=== PATIENT | male | born 1960 | race Caucasian/White ===

== ENCOUNTER → 2022-02-24 | Outpatient (CLI) | payer OTHER ==
--- NOTE | 2022-02-25 13:58 | MR ---
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 TECHNIQUE: Multi planar, multi sequence imaging was performed utilizing: T1-weighted, T2-weighted, a nd turbo inversion recovery imaging of the cervical and lumbar spine. MR contrast: None. FINDINGS: CERVICAL: Alignment: The cervical vertebral bodies have preserved heights. Alignment is within normal limits gi noris patient positioning. Bones: Multilevel degenerative disc disease is noted and most pronounced at the C5-C7 vertebral leve ls. Mild reactive bony edema noted along the adjoining endplates of C5 and C6. Cord: The spinal cord is unremarkable with regards to their signal intensity and morphology. Discs: Intervertebral disc signal is maintained. C2-C3: No significant disc pathology. The spinal canal is patent. Bilateral facet and uncovertebral joint arthropathy are present with mild left neural foraminal stenosis. The right neural foramen is p atent. C3-C4: A disc osteophyte complex is present which minimally narrows the ventral subarachnoid space. Bilateral facet and uncovertebral joint arthropathy are present with mild bilateral neural foraminal stenosis. C4-C5: A disc osteophyte complex is present which minimally narrows the ventral subarachnoid space. Bilateral facet and uncovertebral joint arthropathy are present with moderate left neural foraminal stenosis. The right neural foramen is patent. C5-C6: A disc osteophyte complex is present which minimally narrows the ventral subarachnoid space. Bilateral facet and uncovertebral joint arthropathy are present with moderate mild left neural oliver inal stenosis. C6-C7: A disc osteophyte complex is present which minimally narrows the ventral subarachnoid space. Bilateral facet and uncovertebral joint arthropathy are present with mild bilateral neural foraminal stenosis. C7-T1: A disc osteophyte complex is present which minimally narrows the ventral subarachnoid space. Bilateral facet and uncovertebral joint arthropathy are present with mild bilateral neural foraminal stenosis. Other: None. LUMBAR: Alignment: The lumbar vertebral bodies have preserved heights and alignment. Cord: The conus medullaris and the distal spinal cord appear unremarkable with regards to their signa l intensity and morphology. Bones/Discs: Reactive bony edema along the adjoining endplates of T12 and L1. L1 vertebral body heigh t T2 high T1 signal probable vertebral body hemangioma. Diffuse somewhat lower signal throughout the vertebral bodies. Multilevel degenerative disc disease is noted and most pronounced at the . L1-L2: No significant disc pathology. Spinal canal is patent. The neural foramen are patent. L2-L3: No significant disc pathology. Spinal canal is patent. The neural foramen are patent. L3-L4: No significant disc pathology. Spinal canal is patent. Facet joint arthropathy with mild bilat eral neural foraminal stenosis. L4-L5: Disc bulge with bilateral facet arthropathy result in mild spinal canal stenosis, there is a s uperimposed left subarticular protrusion noted series 04/21/2000 image 9. There is moderate to severe b ilateral neural foraminal stenosis. L5-S1: Disc bulge with bilateral facet arthropathy result in no significant spinal canal stenosis, th ere is moderate to severe bilateral neural foraminal stenosis. Other findings: None. IMPRESSION: 1. No definitive evidence of disc herniation or significant spinal canal stenosis in the cervical or lumbar spine. No evidence of disc herniation within the cervical spine. 2. Left subarticular L4-L5 disc or herniation. 3. Multilevel disc degeneration with associated osteoarthritic changes. 4. Diffuse red marrow conversion can be seen in the setting of tobacco abuse, anemia, or myeloprolif erative disorder.
== END | disposition home or self-care (01) ==
LOC: RADMRIMAIN 15:25
PROVIDERS: ATTEND Internal Medicine
DX: M47.816 Spondylosis without myelopathy or radiculopathy, lumbar region (principal); M51.36 Other intervertebral disc degeneration, lumbar region; M47.22 Other spondylosis with radiculopathy, cervical region; F17.210 Nicotine dependence, cigarettes, uncomplicated
CPT/HCPCS: 72141; 72148